=== PATIENT | male | born 1975 ===

== ENCOUNTER 2025-01-30 07:46 | Day surgery (SDC) | payer BC ==
[~2025-01-30] VITALS: Ht 182.9 cm; Wt 98.5 kg
[~2025-01-30 07:46] MED LIST: OXYACE5T PO
[2025-01-30] MEDS ORDERED: METO50ER (08:19)
[2025-01-30] MEDS ORDERED: VERA120 (08:19)
[2025-01-30] MEDS ORDERED: ALLO300 (08:19)
[2025-01-30] MEDS ORDERED: OMEP20ER (08:20)
[2025-01-30 10:06] VITALS: BP 128/82
== END 2025-01-30 10:06 | disposition home or self-care (01) ==
LOC: ORSCSDS 07:46
PROVIDERS: Surgery
PROC: 0DBK8ZX Excision of Ascending Colon, Via Natural or Artificial Opening Endoscopic, Diagnostic (ICD-10-PCS; principal; 2025-01-30 09:15)
DX: Z12.11 Encounter for screening for malignant neoplasm of colon (principal); Z83.719 Family history of colon polyps, unspecified; D12.2 Benign neoplasm of ascending colon; I10 Essential (primary) hypertension; Z79.899 Other long term (current) drug therapy
CPT/HCPCS: 88305; J2704; J7120